=== PATIENT | male | born 1935 | race Caucasian/White ===

== ENCOUNTER → 2017-10-04 | Emergency (ER) | payer OTHER ==
[~2017-10-04] VITALS: Ht 175.3 cm; Wt 123.4 kg
[~2017-10-04] MED LIST: AFRIN,GENASAL D15 ML BOTH NARES; ALLOPURINOL100 MG PO; ASPIR-LOW81 MG PO; BENADRYL25 MG PO; FERREX 150150 MG PO; FINASTERIDE5 MG PO; IBUPROFEN600 MG PO; IRON325 M1 PO; LASIX80 MG PO; LISINOPRIL5 MG PO; PRAVASTATIN SOD40 MG PO; PROSCAR5 MG PO; SPIRONOLACTONE25 MG PO; STOOL SOFTENER100 MG PO; ULTRAM50 MG PO; VISINE A.C300 DROP/1 BOTH EYES; [UNRECOGNIZED DRUG - OTHER] PO
[2017-10-04 09:18] LABS: APPEARANCE CLEAR ((CLEAR)); BILIRUBIN NEGATIVE; BLOOD NEGATIVE; COLOR STRAW ((YELLOW)); GLUCOSE (STRIP) NEGATIVE; KETONES NEGATIVE; LEUKOCYTES NEGATIVE; NITRITE NEGATIVE; PROTEIN (STRIP) NEGATIVE; SPECIFIC GRAVITY 1.004 (1.000-1.030); UROBILINOGEN 0.2 MG/DL (0.2-1.0)
[2017-10-04 09:24] LABS: HEMOGLOBIN 14.3 G/DL (12.5-16.6); MCH 28.8 PG (29.0-34.0); MCHC 33.3 G/DL (30.0-36.0); MCV 86.5 FL (86-99); PLATELET COUNT 126 K/uL (156-360); RBC DIS.WIDTH-CV 14.9 % (11.8-14.6); RBC DIS.WIDTH-SD 47.4 % (39-53); RED BLOOD COUNT 4.97 M/uL (4.00-5.50); WHITE BLOOD COUNT 4.6 K/uL (4.1-10.2)
[2017-10-04 09:31] LABS: CHLORIDE 107 mEq/L (99-109); POTASSIUM 4.6 mEq/L (3.7-5.4); SODIUM 141 mEq/L (136-147)
[2017-10-04 09:33] LABS: GLUCOSE 112 mg/dL (70-99)
[2017-10-04 09:36] LABS: GFR ESTIMATE (CALCULATED) > 59 mL/min/ (58.99-99999)
[2017-10-04 09:37] LABS: UREA NITROGEN (BUN) 14 mg/dL (9-23)
[2017-10-04 12:30] VITALS: BP 141/69
== END | disposition home or self-care (01) ==
LOC: EME 08:26
PROVIDERS: Emergency Medicine
DX: R10.9 Unspecified abdominal pain (principal); I12.9 Hypertensive chronic kidney disease with stage 1 through stage 4 chronic kidney disease, or unspecified chronic kidney disease; N18.9 Chronic kidney disease, unspecified; I71.4 Abdominal aortic aneurysm, without rupture; Z87.442 Personal history of urinary calculi; Z87.891 Personal history of nicotine dependence
CPT/HCPCS: 74176; 80048; 81003; 85027; 99281; 99284